=== PATIENT | female | born 1955 | race Two or more races ===

== ENCOUNTER 2022-02-24 15:07 | Observation (INO) | payer OTHER ==
[~2022-02-24] VITALS: Ht 170.2 cm; Wt 86.0 kg
[2022-02-24 15:57] LABS: Basophils # (auto) 0.2 10 ^3/uL (0-0.2); Basophils % (auto) 1.9 % (0.0-2.0); Eosinophils # (auto) 0.1 10 ^3/uL (0-0.8); Eosinophils % (auto) 0.6 % (0.0-7.0); Hematocrit 41.5 % (36.0-46.0); Lymphocytes # (auto) 2.7 10 ^3/uL (0.4-5.4); Lymphocytes % (auto) 25.1 % (10.0-50.0); Mean Corpuscular Hemoglobin 31.7 pg (28.0-32.0); Mean Corpuscular Hgb Conc. 33.8 g/dL (32.0-36.0); Mean Corpuscular Volume 93.6 fL (80.0-100.0); Monocytes # (auto) 0.6 10 ^3/uL (0-1.3); Monocytes % (auto) 5.2 % (0.0-12.0); Neutrophils # (auto) 7.3 10 ^3/uL (1.6-8.6); Neutrophils % (auto) 67.2 % (37.0-80.0); Red Blood Cells 4.43 10^6/uL (4.0-5.20); Red Cell Distribution Width 13.6 % (11.8-14.3); White Blood Cell 10.9 10^3/uL (4.4-10.8)
[2022-02-24 16:31] LABS: Albumin 3.8 g/dL (3.4-5.0); BUN/Creatinine Ratio 18.6; Calcium 9.9 mg/dL (8.5-10.1); Potassium 3.7 mmol/L (3.5-5.1)
[2022-02-24 16:34] LABS: Bilirubin, Total 0.3 mg/dL (0.2-1.0); Total Protein 8.2 g/dL (6.4-8.2)
[2022-02-24 17:06] LABS: Urine Bacteria FEW /hpf (None Seen); Urine Blood Negative /uL (Negative); Urine Specific Gravity 1.003 (1.001-1.035); Urine WBC <1 /hpf (0 - 5)
[2022-02-24] MEDS ORDERED: IOHEXOL 300 MG/ML 100ML BOTTLE IJ ONE (20:43)
[2022-02-24] MEDS ORDERED: MORPHINE SULFATE 4 MG/ML SYR/VIAL IV PRN (21:00)
[2022-02-24] MEDS ORDERED: ACETAMINOPHEN 325 MG TAB PO PRN (21:00)
[2022-02-24] MEDS ORDERED: NITROGLYCERIN 0.4 MG SL TAB SL PRN (21:00)
[2022-02-24] MEDS ORDERED: MORPHINE SULFATE INJ 2 MG/ml SYRG IV PRN (21:00)
[2022-02-24] MEDS ORDERED: TEMAZEPAM 15 MG CAP PO PRN (21:00)
[2022-02-24] MEDS: SODIUM CHLORIDE 0.9% 1,000 ML IV SCH (21:00)
[2022-02-24] MEDS ORDERED: HYDROcodone-ACET 5/325MG TAB PO PRN (21:00)
[2022-02-24] MEDS: ASCORBIC ACID 500 MG TAB PO SCH (23:27)
[2022-02-25] VITALS (7 sets, daily range): BP systolic 102–129; BP diastolic 39–73
[2022-02-25] MEDS: HYDROcodone-ACET 5/325MG TAB PO ONE ×2 (03:29→06:19)
[2022-02-25] MEDS: SODIUM CHLORIDE 0.9% 1,000 ML IV SCH ×2 (03:31→21:33)
[2022-02-25] MEDS: ONDANSETRON HCL 4 MG/2 ML VIAL IV PRN (03:56)
[2022-02-25] MEDS ORDERED: LISI-716 PO (04:05)
[2022-02-25] MEDS ORDERED: ALBU108A5 INH (04:05)
[2022-02-25] MEDS ORDERED: OMEP-434 PO (04:05)
[2022-02-25] MEDS ORDERED: MECL-111 PO (04:05)
[2022-02-25] MEDS ORDERED: ATOR10TA52 PO (04:05)
[2022-02-25] MEDS ORDERED: ASPI1TAB37 PO (04:05)
[2022-02-25] MEDS ORDERED: MELO1TAB56 PO (04:05)
[2022-02-25 06:24] LABS: Basophils # (auto) 0.1 10 ^3/uL (0-0.2); Basophils % (auto) 0.6 % (0.0-2.0); Eosinophils # (auto) 0.1 10 ^3/uL (0-0.8); Eosinophils % (auto) 1.1 % (0.0-7.0); Hematocrit 38.5 % (36.0-46.0); Hemoglobin 12.9 g/dL (12.2-16.2); Lymphocytes # (auto) 2.5 10 ^3/uL (0.4-5.4); Lymphocytes % (auto) 28.2 % (10.0-50.0); Mean Corpuscular Hemoglobin 31.4 pg (28.0-32.0); Mean Corpuscular Hgb Conc. 33.5 g/dL (32.0-36.0); Mean Corpuscular Volume 93.7 fL (80.0-100.0); Monocytes # (auto) 0.7 10 ^3/uL (0-1.3); Monocytes % (auto) 7.5 % (0.0-12.0); Neutrophils # (auto) 5.4 10 ^3/uL (1.6-8.6); Neutrophils % (auto) 62.6 % (37.0-80.0); Nucleated Red Blood Cells % 0.1 %; Red Blood Cells 4.11 10^6/uL (4.0-5.20); Red Cell Distribution Width 13.5 % (11.8-14.3); White Blood Cell 8.7 10^3/uL (4.4-10.8)
[2022-02-25 06:40] LABS: BUN/Creatinine Ratio 22.4; Calcium 8.8 mg/dL (8.5-10.1); Potassium 3.8 mmol/L (3.5-5.1)
[2022-02-25 06:43] LABS: Bilirubin, Total 0.3 mg/dL (0.2-1.0); Total Protein 6.6 g/dL (6.4-8.2)
[2022-02-25] MEDS ORDERED: PANTOPRAZOLE 40 MG/10 ML VIAL INJ IV SCH (07:00)
[2022-02-25] MEDS ORDERED: MORPHINE SULFATE INJ 2 MG/ml SYRG IV PRN (07:30)
[2022-02-25] MEDS: ASCORBIC ACID 500 MG TAB PO SCH ×2 (09:02→21:33)
[2022-02-25] MEDS: PANTOPRAZOLE 40 MG TAB PO SCH ×2 (09:03→17:32)
[2022-02-25] MEDS: MULTIPLE VITAMIN TAB PO SCH (09:04)
[2022-02-25] MEDS: ZINC SULFATE 220mg CAP or TAB PO SCH (09:04)
[2022-02-25] MEDS: ENOXAPARIN SOD 40 MG/0.4 ML SYRINGE SC SCH ×2 (10:58→21:34)
[2022-02-25] MEDS: SUCRALFATE 1 GM/10 ML ORAL SUSP PO SCH (17:32)
[2022-02-25] MEDS ORDERED: DEXTROSE (50%) 50ML SYRG IV PRN (18:00)
[2022-02-25] MEDS ORDERED: HYDROcodone-ACET 5/325MG TAB PO PRN (19:15)
[2022-02-25] MEDS: ACCU-CHEK COMFORT CURVE STRIP VI SCH (21:33)
[2022-02-25] MEDS: InsuLIN REG 1unit/0.01ml Soln (100units/ml) SC SCH (21:39)
[2022-02-25] MEDS ORDERED: ATORVASTATIN 20 MG TAB PO SCH (22:00)
[2022-02-26 05:00] VITALS: BP 115/52
[2022-02-26 05:20] LABS: Basophils # (auto) 0 10 ^3/uL (0-0.2); Basophils % (auto) 0.6 % (0.0-2.0); Eosinophils # (auto) 0.1 10 ^3/uL (0-0.8); Eosinophils % (auto) 1.7 % (0.0-7.0); Hematocrit 38.2 % (36.0-46.0); Hemoglobin 12.8 g/dL (12.2-16.2); Lymphocytes % (auto) 44.2 % (10.0-50.0); Mean Corpuscular Hemoglobin 31.6 pg (28.0-32.0); Mean Corpuscular Hgb Conc. 33.5 g/dL (32.0-36.0); Mean Corpuscular Volume 94.4 fL (80.0-100.0); Monocytes # (auto) 0.5 10 ^3/uL (0-1.3); Monocytes % (auto) 6.7 % (0.0-12.0); Neutrophils # (auto) 3.2 10 ^3/uL (1.6-8.6); Neutrophils % (auto) 46.8 % (37.0-80.0); Nucleated Red Blood Cells % 0.1 %; Red Blood Cells 4.04 10^6/uL (4.0-5.20); Red Cell Distribution Width 13.6 % (11.8-14.3); White Blood Cell 6.8 10^3/uL (4.4-10.8)
[2022-02-26 05:36] LABS: Calcium 8.8 mg/dL (8.5-10.1); Magnesium 2.2 mg/dL (1.6-2.6); Potassium 4.1 mmol/L (3.5-5.1)
[2022-02-26 05:39] LABS: BUN/Creatinine Ratio 13.7
[2022-02-26] MEDS: ACCU-CHEK COMFORT CURVE STRIP VI SCH ×2 (06:23→11:53)
[2022-02-26] MEDS: InsuLIN REG 1unit/0.01ml Soln (100units/ml) SC SCH ×2 (06:23→11:30)
[2022-02-26] MEDS: PANTOPRAZOLE 40 MG TAB PO SCH (06:24)
[2022-02-26] MEDS: SUCRALFATE 1 GM/10 ML ORAL SUSP PO SCH ×2 (06:24→11:42)
[2022-02-26] MEDS: ZINC SULFATE 220mg CAP or TAB PO SCH (09:11)
[2022-02-26] MEDS: MULTIPLE VITAMIN TAB PO SCH (09:11)
[2022-02-26] MEDS: ENOXAPARIN SOD 40 MG/0.4 ML SYRINGE SC SCH (09:12)
[2022-02-26] MEDS: ASCORBIC ACID 500 MG TAB PO SCH (09:12)
[2022-02-26] MEDS ORDERED: LISINOPRIL 10 MG TAB PO SCH (10:00)
[2022-02-26] MEDS ORDERED: ASPirin-EC 81 mg tab PO SCH (10:00)
[2022-02-26] MEDS: ONDANSETRON HCL 4 MG/2 ML VIAL IV PRN (11:08)
[2022-02-26] MEDS: SODIUM CHLORIDE 0.9% 1,000 ML IV SCH (13:42)
[2022-02-26] MEDS ORDERED: SUCR1SUS5 PO (13:45)
[2022-02-26] MEDS ORDERED: PANT40T PO (13:45)
[2022-02-26 15:21] VITALS: BP 129/60
== END 2022-02-26 16:18 | disposition home or self-care (01) ==
LOC: ER 15:10 → TELE-EAST 20:46
PROVIDERS: ADMIT Internal Medicine; ATTEND Internal Medicine
DX: K21.9 Gastro-esophageal reflux disease without esophagitis (principal); Z20.822 Contact with and (suspected) exposure to COVID-19; R55 Syncope and collapse; R11.2 Nausea with vomiting, unspecified; I10 Essential (primary) hypertension; R00.2 Palpitations; E11.9 Type 2 diabetes mellitus without complications; E66.9 Obesity, unspecified; Z86.718 Personal history of other venous thrombosis and embolism; Z79.899 Other long term (current) drug therapy; Z79.82 Long term (current) use of aspirin
CPT/HCPCS: 36415; 71045; 74177; 80048; 80053; 80061; 81001; 82962; 83036; 83605; 83690; 83735; 84484; 85025; 87426; 93005; 96361; 96372; 96374; 96376; 99285; G0378; J1650; J1815; J2405; J7030; Q9967

== ENCOUNTER 2022-03-14 11:18 | Emergency (ER) | payer OTHER ==
[~2022-03-14] VITALS: Ht 152.4 cm; Wt 83.9 kg
[~2022-03-14 11:18] MED LIST: ALBU108A5 INH; ASPI1TAB37 PO; ATOR10TA52 PO; LISI-716 PO; MECL-111 PO; PANT40T PO; SUCR1SUS5 PO
[2022-03-14 16:23] VITALS: BP 140/51
[2022-03-14] MEDS ORDERED: ACE3T PO (16:55)
[2022-03-14] MEDS ORDERED: KETOROLAC TROMETH 60MG/2ML VIAL IM ONE (17:00)
== END 2022-03-14 18:26 | disposition home or self-care (01) ==
LOC: ER 11:18
DX: M77.8 Other enthesopathies, not elsewhere classified (principal); I10 Essential (primary) hypertension; E11.9 Type 2 diabetes mellitus without complications; Z90.49 Acquired absence of other specified parts of digestive tract; Z79.82 Long term (current) use of aspirin; Z79.899 Other long term (current) drug therapy
CPT/HCPCS: 73030; 96372; 99283; J1885

== ENCOUNTER 2022-07-10 16:44 | Inpatient (IN) | payer OTHER, MEDICAID ==
[~2022-07-10] VITALS: Ht 154.9 cm; Wt 82.4 kg
[~2022-07-10 16:44] MED LIST changes: +ACE3T PO
[2022-07-10] MEDS ORDERED: ONDANSETRON HCL 4 MG/2 ML VIAL IV ONE (18:00)
[2022-07-10] MEDS ORDERED: PANTOPRAZOLE 40 MG/10 ML VIAL INJ IV ONE (18:00)
[2022-07-10] MEDS ORDERED: MORPHINE SULFATE 4 MG/ML SYR/VIAL IV ONE (18:00)
[2022-07-10] MEDS ORDERED: SODIUM CHLORIDE 0.9% 500 ML IVB ONE (18:00)
[2022-07-10 18:28] LABS: Albumin 3.5 g/dL (3.4-5.0); Potassium 3.3 mmol/L (3.5-5.1)
[2022-07-10 18:31] LABS: Basophils # (auto) 0 10 ^3/uL (0-0.2); Basophils % (auto) 0.3 % (0.0-2.0); Eosinophils # (auto) 0 10 ^3/uL (0-0.8); Eosinophils % (auto) 0.2 % (0.0-7.0); Hematocrit 44.4 % (36.0-46.0); Hemoglobin 14.3 g/dL (12.2-16.2); Lymphocytes # (auto) 2.1 10 ^3/uL (0.4-5.4); Lymphocytes % (auto) 17.4 % (10.0-50.0); Mean Corpuscular Hgb Conc. 32.1 g/dL (32.0-36.0); Mean Corpuscular Volume 93.3 fL (80.0-100.0); Monocytes # (auto) 0.7 10 ^3/uL (0-1.3); Monocytes % (auto) 5.4 % (0.0-12.0); Neutrophils # (auto) 9.4 10 ^3/uL (1.6-8.6); Neutrophils % (auto) 76.7 % (37.0-80.0); Nucleated Red Blood Cells % 0.1 %; Red Blood Cells 4.76 10^6/uL (4.0-5.20); Red Cell Distribution Width 14.5 % (11.8-14.3); White Blood Cell 12.3 10^3/uL (4.4-10.8)
[2022-07-10 18:32] LABS: BUN/Creatinine Ratio 26.5; Bilirubin, Total 0.6 mg/dL (0.2-1.0); Total Protein 7.8 g/dL (6.4-8.2)
[2022-07-10 19:21] LABS: Amylase 27 U/L (25-115); Lipase 63 U/L (73-393)
[2022-07-10] MEDS ORDERED: NITROGLYCERIN 0.4 MG SL TAB SL PRN (23:15)
[2022-07-10] MEDS ORDERED: ONDANSETRON HCL 4 MG/2 ML VIAL IV PRN (23:15)
[2022-07-10] MEDS ORDERED: MORPHINE SULFATE INJ 2 MG/ml SYRG IV PRN ×2 (23:15)
[2022-07-10] MEDS: metroNIDAZOLE 500MG/100ML 100 ML IV SCH (23:39)
[2022-07-10] MEDS: SODIUM CHLORIDE 0.9% 1,000 ML IV SCH (23:39)
[2022-07-11] MEDS: levoFLOXacin 500MG 100 ML IV SCH ×2 (04:31→21:17)
[2022-07-11 05:00] VITALS: BP 80/32
[2022-07-11 05:35] LABS: Basophils # (auto) 0 10 ^3/uL (0-0.2); Basophils % (auto) 0.3 % (0.0-2.0); Eosinophils # (auto) 0.1 10 ^3/uL (0-0.8); Eosinophils % (auto) 0.5 % (0.0-7.0); Hematocrit 37.2 % (36.0-46.0); Hemoglobin 12.4 g/dL (12.2-16.2); Lymphocytes # (auto) 1.6 10 ^3/uL (0.4-5.4); Lymphocytes % (auto) 16.5 % (10.0-50.0); Mean Corpuscular Hemoglobin 31.3 pg (28.0-32.0); Mean Corpuscular Hgb Conc. 33.5 g/dL (32.0-36.0); Mean Corpuscular Volume 93.6 fL (80.0-100.0); Monocytes # (auto) 0.6 10 ^3/uL (0-1.3); Monocytes % (auto) 6.6 % (0.0-12.0); Neutrophils # (auto) 7.4 10 ^3/uL (1.6-8.6); Neutrophils % (auto) 76.1 % (37.0-80.0); Red Blood Cells 3.97 10^6/uL (4.0-5.20); Red Cell Distribution Width 14.2 % (11.8-14.3); White Blood Cell 9.8 10^3/uL (4.4-10.8)
[2022-07-11] MEDS: metroNIDAZOLE 500MG/100ML 100 ML IV SCH ×3 (06:49→21:12)
[2022-07-11] MEDS: SODIUM CHLORIDE 0.9% 1,000 ML IV SCH ×3 (07:15→23:15)
[2022-07-11 07:30] VITALS: BP 106/58
[2022-07-11 08:00] VITALS: BP 106/58
[2022-07-11 08:23] LABS: Sodium 135 mmol/L (136-145)
[2022-07-11 08:24] LABS: Alanine Aminotransferase 28 U/L (13-56); Albumin 2.6 g/dL (3.4-5.0); Alkaline Phosphatase 77 U/L (45-117); Anion Gap 8 (5-15); Aspartate Aminotransferase 14 U/L (15-37); Bilirubin, Total 0.5 mg/dL (0.2-1.0); Blood Urea Nitrogen 18 mg/dL (7-18); Carbon Dioxide 24 mmol/L (21-32); Chloride 103 mmol/L (98-107); GFR African American 134 mL/min; GFR Non-African American 111 mL/min; Glucose 122 mg/dL (74-106); Total Protein 6.2 g/dL (6.4-8.2)
[2022-07-11 08:34] LABS: Potassium 2.9 mmol/L (3.5-5.1)
[2022-07-11] MEDS ORDERED: POTASSIUM CHL 20 Meq TABLET PO ONE (09:00)
[2022-07-11] MEDS ORDERED: ALUM & MAG HYDROX-SIMETH LIQ(MAALOX) 30 ML PO PRN (12:00)
[2022-07-11] MEDS: SUCRALFATE 1 GM/10 ML ORAL SUSP PO SCH ×3 (12:00→21:17)
[2022-07-11 13:00] VITALS: BP 108/66
[2022-07-11 14:06] LABS: INR 1.05 (0.9-1.15); Partial Thromboplastin Time 30.5 sec (24.6-33.4)
[2022-07-11 15:01] LABS: Magnesium 1.9 mg/dL (1.6-2.6)
[2022-07-11 16:48] VITALS: BP 107/56
[2022-07-11 21:54] VITALS: BP 99/60
[2022-07-11] MEDS ORDERED: ATORVASTATIN 20 MG TAB PO SCH (22:00)
[2022-07-11] MEDS ORDERED: PATIENTS OWN MEDICATION (Atorvastatin Calcium 1 TAB) PO SCH (22:00)
[2022-07-12 05:00] VITALS: BP 118/60
[2022-07-12] MEDS: SUCRALFATE 1 GM/10 ML ORAL SUSP PO SCH ×3 (05:25→17:45)
[2022-07-12] MEDS: metroNIDAZOLE 500MG/100ML 100 ML IV SCH ×3 (05:25→16:45)
[2022-07-12] MEDS: SODIUM CHLORIDE 0.9% 1,000 ML IV SCH ×2 (05:42→16:45)
[2022-07-12 06:19] LABS: Basophils # (auto) 0 10 ^3/uL (0-0.2); Basophils % (auto) 0.1 % (0.0-2.0); Eosinophils # (auto) 0.1 10 ^3/uL (0-0.8); Eosinophils % (auto) 1.3 % (0.0-7.0); Hematocrit 35.7 % (36.0-46.0); Hemoglobin 11.9 g/dL (12.2-16.2); Lymphocytes # (auto) 1.6 10 ^3/uL (0.4-5.4); Lymphocytes % (auto) 19.1 % (10.0-50.0); Mean Corpuscular Hemoglobin 31.5 pg (28.0-32.0); Mean Corpuscular Hgb Conc. 33.2 g/dL (32.0-36.0); Monocytes # (auto) 0.6 10 ^3/uL (0-1.3); Neutrophils % (auto) 72.5 % (37.0-80.0); Red Blood Cells 3.76 10^6/uL (4.0-5.20); Red Cell Distribution Width 14.4 % (11.8-14.3); White Blood Cell 8.2 10^3/uL (4.4-10.8)
[2022-07-12 06:41] LABS: Potassium 3.6 mmol/L (3.5-5.1)
[2022-07-12 07:04] LABS: Albumin 2.6 g/dL (3.4-5.0); Bilirubin, Total 0.3 mg/dL (0.2-1.0); Calcium 8.7 mg/dL (8.5-10.1); Total Protein 6.2 g/dL (6.4-8.2)
[2022-07-12 08:00] VITALS: BP 101/54
[2022-07-12] MEDS ORDERED: SODIUM CHLORIDE LOCK 10 ML ONE (08:30)
[2022-07-12] MEDS ORDERED: NALOXONE HCL 0.4 MG/ML VIAL ONE (08:30)
[2022-07-12] MEDS ORDERED: LIDOCAINE VISCOUS 2% 15ML UD ONE (08:30)
[2022-07-12] MEDS ORDERED: FLUMAZENIL 0.1 MG/ML INJ 10ML MDV IV ONE (08:30)
[2022-07-12] MEDS ORDERED: diphenhdrAMINE HCL 50 MG/1 ML VL ONE (08:31)
[2022-07-12] MEDS ORDERED: MIDAZOLAM HCL 5 MG/ML-1ML VIAL ONE (08:31)
[2022-07-12] MEDS ORDERED: fentaNYL CITRATE 100 MCG/2 ML VL ONE (08:31)
[2022-07-12] MEDS ORDERED: EPINEPHrine HCL 1 MG/10 ML SYRG ONE (08:32)
[2022-07-12 08:58] VITALS: BP 101/54
[2022-07-12] MEDS ORDERED: PANTOPRAZOLE 40 MG/10 ML VIAL INJ IV SCH (10:00)
[2022-07-12 13:00] VITALS: BP 100/51
[2022-07-12] MEDS ORDERED: PANT40TA2 PO (13:29)
[2022-07-12] MEDS ORDERED: SUCR1TAB22 OR (13:29)
[2022-07-12] MEDS ORDERED: METR500T PO (13:29)
[2022-07-12] MEDS ORDERED: LEVO500T31 PO (13:29)
[2022-07-12] MEDS ORDERED: LIDOCAINE VISCOUS 2% 15ML UD MT ONE (16:06)
[2022-07-12] MEDS ORDERED: diphenhdrAMINE HCL 50 MG/1 ML VL IV ONE ×2 (16:07→16:13)
[2022-07-12] MEDS ORDERED: fentaNYL CITRATE 100 MCG/2 ML VL IV ONE ×2 (16:07→16:12)
[2022-07-12] MEDS ORDERED: MIDAZOLAM HCL 5 MG/ML-1ML VIAL IV ONE ×2 (16:07→16:14)
[2022-07-12 18:07] VITALS: BP 100/51
== END 2022-07-12 19:00 | disposition home or self-care (01) | DRG 392 ==
LOC: ER 16:48 → TELE 23:24 → TELE-WESTW 23:43
PROVIDERS: ADMIT Internal Medicine; ATTEND Internal Medicine
PROC: 0DB68ZX Excision of Stomach, Via Natural or Artificial Opening Endoscopic, Diagnostic (ICD-10-PCS; 2022-07-12)
PROC: 0DB98ZX Excision of Duodenum, Via Natural or Artificial Opening Endoscopic, Diagnostic (ICD-10-PCS; principal; 2022-07-12 16:03)
DX: K52.9 Noninfective gastroenteritis and colitis, unspecified (principal); K29.70 Gastritis, unspecified, without bleeding; E87.6 Hypokalemia; E11.9 Type 2 diabetes mellitus without complications; Z20.822 Contact with and (suspected) exposure to COVID-19; E78.5 Hyperlipidemia, unspecified; I10 Essential (primary) hypertension; K42.9 Umbilical hernia without obstruction or gangrene; K44.9 Diaphragmatic hernia without obstruction or gangrene; K76.0 Fatty (change of) liver, not elsewhere classified; Z82.49 Family history of ischemic heart disease and other diseases of the circulatory system; Z83.3 Family history of diabetes mellitus; Z86.718 Personal history of other venous thrombosis and embolism; Z90.49 Acquired absence of other specified parts of digestive tract
CPT/HCPCS: 36415; 71045; 74176; 80053; 82150; 83690; 83735; 84132; 84484; 85025; 85610; 85730; 93005; 96361; 96374; 96375; C9113; G0378; J1956; J2250; J2405; J3490

== ENCOUNTER 2022-08-14 11:01 | Emergency (ER) | payer OTHER, MEDICAID ==
[~2022-08-14] VITALS: Ht 157.5 cm; Wt 79.9 kg
[~2022-08-14 11:01] MED LIST changes: -ACE3T PO; +LEVO500T31 PO; -LISI-716 PO; +METR500T PO; +PANT40TA2 PO; +SUCR1TAB22 OR
[2022-08-14 13:02] LABS: Alcohol, Urine < 3.0 mg/dL (0-10)
[2022-08-14 13:04] LABS: Amphetamine Screen, Urine NEGATIVE (NEGATIVE); Barbiturate Scree,Urine NEGATIVE (NEGATIVE); Benzodiazephine Screen, Urine NEGATIVE (NEGATIVE); Cannabinoid Screen, Urine NEGATIVE (NEGATIVE); Cocaine Screen, Urine NEGATIVE (NEGATIVE); Opiate Scree,Urine NEGATIVE (NEGATIVE); Phencyclidine Screen, Urine NEGATIVE (NEGATIVE)
[2022-08-14 13:22] LABS: Urine Bacteria FEW /hpf (None Seen); Urine Blood TRACE /uL (Negative); Urine Specific Gravity 1.015 (1.001-1.035); Urine WBC 1 /hpf (0 - 5)
[2022-08-14 13:48] LABS: Basophils # (auto) 0.1 10 ^3/uL (0-0.2); Basophils % (auto) 0.9 % (0.0-2.0); Eosinophils # (auto) 0 10 ^3/uL (0-0.8); Eosinophils % (auto) 0.3 % (0.0-7.0); Hematocrit 41.6 % (36.0-46.0); Hemoglobin 13.6 g/dL (12.2-16.2); Lymphocytes # (auto) 1.8 10 ^3/uL (0.4-5.4); Lymphocytes % (auto) 17.2 % (10.0-50.0); Mean Corpuscular Hemoglobin 30.8 pg (28.0-32.0); Mean Corpuscular Hgb Conc. 32.7 g/dL (32.0-36.0); Mean Corpuscular Volume 94.3 fL (80.0-100.0); Monocytes # (auto) 0.7 10 ^3/uL (0-1.3); Monocytes % (auto) 6.3 % (0.0-12.0); Neutrophils # (auto) 7.8 10 ^3/uL (1.6-8.6); Neutrophils % (auto) 75.3 % (37.0-80.0); Nucleated Red Blood Cells % 0.1 %; Red Blood Cells 4.42 10^6/uL (4.0-5.20); Red Cell Distribution Width 14.5 % (11.8-14.3); White Blood Cell 10.4 10^3/uL (4.4-10.8)
[2022-08-14 14:04] LABS: Albumin 3.6 g/dL (3.4-5.0); Calcium 9.3 mg/dL (8.5-10.1); Potassium 3.7 mmol/L (3.5-5.1)
[2022-08-14 14:08] LABS: INR 1.01 (0.9-1.15); Partial Thromboplastin Time 31.3 sec (24.6-33.4)
[2022-08-14 14:09] LABS: Bilirubin, Total 0.4 mg/dL (0.2-1.0); Total Protein 7.7 g/dL (6.4-8.2)
[2022-08-14 15:38] VITALS: BP 147/68
== END 2022-08-14 15:40 | disposition home or self-care (01) ==
LOC: ER 11:01
DX: K80.20 Calculus of gallbladder without cholecystitis without obstruction (principal); K92.1 Melena
CPT/HCPCS: 36415; 74176; 80053; 80307; 81001; 85025; 85610; 85730; 86850; 86900; 86901

== ENCOUNTER 2023-03-10 19:50 | Emergency (ER) | payer OTHER, MEDICAID ==
[~2023-03-10] VITALS: Ht 160 cm; Wt 75.0 kg
[2023-03-10] MEDS: ONDANSETRON ODT 4 MG TAB PO ONE ×2 (20:37→21:14)
[2023-03-10 21:03] LABS: Albumin 3.6 g/dL (3.4-5.0); Calcium 9.3 mg/dL (8.5-10.1); Potassium 3.8 mmol/L (3.5-5.1)
[2023-03-10 21:06] LABS: BUN/Creatinine Ratio 22.2 (10.0-20.0); Bilirubin, Total 0.3 mg/dL (0.2-1.0); Total Protein 7.9 g/dL (6.4-8.2)
[2023-03-10 21:29] LABS: Basophils # (auto) 0 10 ^3/uL (0-0.2); Basophils % (auto) 0.3 % (0.0-2.0); Eosinophils # (auto) 0 10 ^3/uL (0-0.8); Eosinophils % (auto) 0.4 % (0.0-7.0); Hematocrit 42.8 % (36.0-46.0); Hemoglobin 13.9 g/dL (12.2-16.2); Lymphocytes # (auto) 1.4 10 ^3/uL (0.4-5.4); Mean Corpuscular Hemoglobin 29.6 pg (28.0-32.0); Mean Corpuscular Hgb Conc. 32.6 g/dL (32.0-36.0); Mean Corpuscular Volume 90.7 fL (80.0-100.0); Monocytes # (auto) 0.6 10 ^3/uL (0-1.3); Neutrophils # (auto) 10.6 10 ^3/uL (1.6-8.6); Neutrophils % (auto) 83.3 % (37.0-80.0); Nucleated Red Blood Cells % 0.3 %; Red Blood Cells 4.71 10^6/uL (4.0-5.20); White Blood Cell 12.8 10^3/uL (4.4-10.8)
[2023-03-11] VITALS: BP 122/75
[2023-03-11] MEDS ORDERED: MAGNESIUM CITRATE SOLUTION 300 ML BTL PO ONE (03:30)
== END 2023-03-11 05:48 | disposition home or self-care (01) ==
LOC: ER 19:50
DX: K59.00 Constipation, unspecified (principal); K57.90 Diverticulosis of intestine, part unspecified, without perforation or abscess without bleeding; D72.829 Elevated white blood cell count, unspecified; E11.9 Type 2 diabetes mellitus without complications; E78.5 Hyperlipidemia, unspecified; I10 Essential (primary) hypertension; Z90.49 Acquired absence of other specified parts of digestive tract
CPT/HCPCS: 36415; 74176; 80053; 83690; 85025; 93005; 99284; Q0162

== ENCOUNTER → 2023-05-03 | Outpatient (CLI) | payer OTHER, MEDICAID ==
[~2023-05-03] VITALS: Ht 160 cm; Wt 70.3 kg
[~2023-05-03] MED LIST changes: +ADENOSINE 59 MG in GIVE UN-DILUTED 0 ML IV ONE; +ASPI-628 PO; -ASPI1TAB37 PO; -MECL-111 PO; +MECL-126 PO
== END | disposition home or self-care (01) ==
LOC: XYW 07:56
PROVIDERS: ATTEND Specialist
DX: I10 Essential (primary) hypertension (principal); R07.9 Chest pain, unspecified
CPT/HCPCS: 78452; 93017; A9500; J0153

== ENCOUNTER 2023-08-17 06:55 | Emergency (ER) | payer OTHER, MEDICAID ==
[~2023-08-17] VITALS: Ht 157.5 cm; Wt 74.1 kg
[~2023-08-17 06:55] MED LIST changes: -ADENOSINE 59 MG in GIVE UN-DILUTED 0 ML IV ONE
[2023-08-17 07:05] VITALS: BP 122/63; PULSE 72; RESP 16; O2SAT 95
== END 2023-08-17 09:20 | disposition left against medical advice (07) ==
LOC: ER 06:55
DX: M54.89 Other dorsalgia (principal); I10 Essential (primary) hypertension; E11.9 Type 2 diabetes mellitus without complications; M19.90 Unspecified osteoarthritis, unspecified site; E78.5 Hyperlipidemia, unspecified; Z90.49 Acquired absence of other specified parts of digestive tract; Z98.890 Other specified postprocedural states